=== PATIENT | male | born 1985 | race African-American/Black ===

== ENCOUNTER 2020-11-17 04:38 | Emergency (ER) | payer OTHER | END 2020-11-17 07:04 | disposition home or self-care (01) | LOC: EDH 04:38 | DX: S61.032A Puncture wound without foreign body of left thumb without damage to nail, initial encounter (principal); W46.0XXA Contact with hypodermic needle, initial encounter; Y93.89 Activity, other specified; Y92.89 Other specified places as the place of occurrence of the external cause; Y99.8 Other external cause status | CPT/HCPCS: 36415; 86701; 86704; 86706; 87390; 87520 ==